=== PATIENT | female | born 1970 | race Caucasian/White ===

== ENCOUNTER 2016-07-21 10:19 | Day surgery (SDC) | payer OTHER ==
[2016-07-15 17:10] VITALS: BMI 25.0
[2016-07-21] MEDS ORDERED: LIDOCAINE HCL 4% TOPICAL SOLN (50 ML/BOTTLE) ONE (12:05)
[2016-07-21] MEDS ORDERED: SUCCINYLCHOLINE CHLORIDE 200 MG/10 ML VIAL ONE (12:27)
[2016-07-21] MEDS ORDERED: ROCURONIUM BROMIDE 50 MG/5 ML VIAL ONE (12:27)
[2016-07-21] MEDS ORDERED: PROPOFOL 20 ML ONE ×2 (12:27)
[2016-07-21] MEDS ORDERED: ePHEDrine SULFATE 50 MG/1 ML AMPULE ONE (12:28)
[2016-07-21] MEDS ORDERED: MIDAZOLAM HCL 2 MG/2 ML SINGLE DOSE VIAL ONE (12:40)
[2016-07-21] MEDS ORDERED: ceFAZolin SODIUM 1 GM VIAL ONE (12:53)
[2016-07-21] MEDS ORDERED: MINERAL OIL/PETROLATUM,WHITE 3.5 GM TUBE ONE (12:58)
[2016-07-21] MEDS ORDERED: DEXAMETHASONE SOD PHOSPHATE 4 MG/1 ML VIAL ONE (13:34)
[2016-07-21] MEDS ORDERED: ONDANSETRON 4 MG/2 ML VIAL ONE ×2 (13:34→15:14)
[2016-07-21] MEDS ORDERED: RIZATRIPTAN BENZOATE PO PRN (14:33)
[2016-07-21] MEDS ORDERED: OXYCODONE/APAP 5/325MG COMBO TABLET PO PRN (14:36)
[2016-07-21] MEDS ORDERED: HYDROmorphone HCL CARPU-JECT 1 MG/1 ML DISP.SYRIN IVPB PRN (14:38)
[2016-07-21] MEDS ORDERED: SODIUM CHLORIDE 1,000 ML IV SCH (14:45)
--- NOTE | 2016-07-21 14:47 | HP ---
History & Physical Update - History History: No Change - Physical Physical: No Change - Assessment Assessment: No Change - Plan Plan: No Change
--- NOTE | 2016-07-21 14:50 | OP ---
Operative Note - Note: Operative Date: 07/21/16 Pre-Operative Diagnosis: multinodular goiter with compressive symptoms Operation: Total thyroidectomy Implants: none Post-Operative Diagnosis: Same as Pre-op Surgeon: Fabio Whelan Career Guidance Technician: Krystal Pisano Anesthesiologist/ENGRAVER LETTER: Wilner Douglas Anesthesia: General Specimens Removed: entire thyroid Estimated Blood Loss (mls): 50 Drains & Tubes with Location: BAHMAN- neck Operative Report Dictated: Yes
[2016-07-21] MEDS ORDERED: ONDANSETRON 4 MG/2 ML VIAL IVPUSH PRN (14:52)
[2016-07-21] MEDS ORDERED: LACTATED RINGERS SOLUTION 1,000 ML IV SCH (15:00)
--- NOTE | 2016-07-21 16:36 | OP ---
DATE OF OPERATION: 07/21/2016 PREOPERATIVE DIAGNOSIS: Thyromegaly with respiratory compromise and dysphagia, multinodular goiter. POSTOPERATIVE DIAGNOSIS: Thyromegaly with respiratory compromise and dysphagia, multinodular goiter. PROCEDURE: Total thyroidectomy. SURGEON: Fabio Whelan M.D. MOVEMENT ASSEMBLY FINAL INSPECTOR: Krystal ANESTHESIA: General endotracheal intubation. HISTORY OF PRESENT ILLNESS: Patient was admitted with complaining of inability to sleep at night, dysphagic, and respiratory compromise. Patient has been treated for multinodular goiter which has gotten worse and patient had a preoperative workup which revealed euthyroid gland but multinodular, right and left, more than 10 cm in total. Patient was brought to the operating room. Intravenous antibiotics and endotracheal intubation was done. intubation with fiberoptic, and patient's neck was extended, and incision was made on the lower neck crease, and flap was created above and below, to the suprasternal notch below to the thyroid isthmus above, and midline was opened, and initially the left gland was dissected away from the strap muscles, medial rotation of the gland was done, middle thyroid vein was identified and ligated, and the recurrent laryngeal nerve was identified and preserved, following which the superior laryngeal nerve was saved by taking part of the thyroid gland on the top, and hopefully the parathyroid gland was left behind in the that retained thyroid tissue. Similarly, the right gland superior pole was also retracted downwards and medially and middle lobe retracted medially, and then again the nerve was identified and preserved. Clearly both sides of the recurrent laryngeal was identified. Some mild oozing was seen from the thyroid gland. It was pretty fleshy and vascular, and for retraction 2-0 silks were used to retract the gland. Once it was done, after adequate hemostasis, the Ryan-Vizcarra was introduced, brought through the platysma field, and subcutaneous tissue and skin were closed. Patient brought to the recovery room, extubated with no stridor or any major respiratory complication. FABIO WHELAN M.D. /[id number]
[2016-07-21] MEDS ORDERED: PROMETHAZINE HCL 25 MG/1 ML VIAL IVPUSH ONE (16:45)
[2016-07-22 05:28] VITALS: BP 121/60; PULSE 71; TEMP 97.6
[2016-07-22] MEDS ORDERED: LEVOTHYROXINE NA 112 MCG TABLET (FP) PO SCH (07:00)
[2016-07-22 08:42] LABS: BASOPHIL 0.2 % (0-2.0); EOSINOPHIL 0.2 % (0-4.5); MCH 27.3 pg (25.7-33.7); MCHC 32.3 g/dl (32.0-36.0); MEAN CELL VOLUME 84.7 fl (80-96); MEAN PLT VOLUME 8.9 fl (7.5-11.1); NEUTROPHILS 71.6 % (42.8-82.8); PLATELET COUNT 251 K/MM3 (134-434); RDW 12.6 % (11.6-15.6); WHITE BLOOD COUNT 9.9 K/mm3 (4.0-10.0)
[2016-07-22 09:12] LABS: ALBUMIN 3.5 g/dl (3.5-5.0); ALK PHOS 34 U/L (32-92); ANION GAP 8 (8-16); BILIRUBIN,TOTAL 0.9 mg/dl (0.2-1.0); CO2 26 mmol/L (22-28); CREATININE 0.6 mg/dl (0.6-1.3); GLUCOSE,RANDOM 96 mg/dl (74-106); SGOT/AST 10 U/L (10-42); SGPT/ALT 10 U/L (10-40); TOT PROT 6.1 g/dl (6.4-8.3)
--- NOTE | 2016-07-24 10:19 | PATH ---
Surgical Pathology Report Patient Name: MINA STONER [facility]. Rec. #: [id number] /Age/Gender: 1970 (Age: 46) / F Account: [id number] [facility] Taken: 07/21/2016 Received: 07/21/2016 Reported: 07/24/2016 Physicians: Fabio Whelan M.D. Specimen(s) Received TOTAL THYROIDECTOMY Clinical History Multinodular goiter, compression syndrome Final Diagnosis THYROID, TOTAL THYROIDECTOMY: BENIGN MULTINODULAR HYPERPLASIA WITH ADENOMATOID NODULES AND DEGENERATIVE CHANGES. BACKGROUND LYMPHOCYTIC THYROIDITIS WITH HISTOLOGIC FEATURES OF NIKKY'S THYROIDITIS. Electronically Signed Goldy Lyn M.D. Gross Description Received in formalin, labeled "thyroid" is a 62 gram total thyroidectomy specimen. The left lobe measures 7.0 x 3.3 x 3.2 cm, the right lobe measures 5.5 x 3.5 x 2.5 cm, and the isthmus measures 2.3 x 1.3 x 1.1 cm. The capsule is red-brown and shaggy with focal defects. The left lobe is inked black, the right lobe is inked red and the isthmus is inked green. Sectioning reveals abundant bautista, solid, focally hemorrhagic nodules within both lobes as well as the isthmus. The remaining thyroid parenchyma is red-brown and beefy. Separately received within the same container is a 2.5 x 2.0 x 1.2 cm aggregate of bautista soft tissue fragments. Physician Gynecologist sections are submitted in 23 cassettes as follows: 1-9-left lobe sequentially from superior to inferior; 86-83-nxbogut from left to right; 13-21-right lobe sequentially from superior to inferior; 82-44-ikxjicqfcm received tissue fragments. 07/22/201607/22/2016
--- NOTE | 2016-07-27 14:10 | PN ---
Progress Note (short form) - Note Progress Note: Patient seen by Dr. Whelan post op day #1. Pt complaining of discomfort but no difficulty swallowing or breathing. Denies numbness/tingling. Neck w/o hematoma. BAHMAN removed. Calcium 8.0 this morning. Levothyroxine and Percocet prescription provided. Instructed to f/u in one week.
== END 2016-07-22 14:21 | disposition home or self-care (01) ==
LOC: FASU 10:19 → FM/S 16:08 → FASU 07-22 14:21
PROVIDERS: ATTEND Surgery Vascular Surgery
PROC: 0GTK0ZZ Resection of Thyroid Gland, Open Approach (ICD-10-PCS; principal; 2016-07-21 12:00)
DX: E05.20 Thyrotoxicosis with toxic multinodular goiter without thyrotoxic crisis or storm (principal); E01.0 Iodine-deficiency related diffuse (endemic) goiter; R13.10 Dysphagia, unspecified; J96.00 Acute respiratory failure, unspecified whether with hypoxia or hypercapnia
CPT/HCPCS: 36415; 80053; 82310; 84703; 85025; 88307-TC; 94760